=== PATIENT | male | born 1950 | race Caucasian/White ===

== ENCOUNTER 2017-06-24 06:33 | Day surgery (SDC) ==
[2015-10-03 20:44] VITALS: BMI 25.8
[2017-06-24] MEDS ORDERED: LIDOCAINE 1% 20 ML MDV ID ONE (07:26)
[2017-06-24] MEDS ORDERED: DIPRIVAN 20 ML VIAL IVP ONE (08:41)
[2017-06-24] MEDS ORDERED: VERSED ONE (08:41)
[2017-06-24 09:57] VITALS: BP 123/65; TEMP 97.4
--- NOTE | 2017-06-24 15:40 | OP ---
PROCEDURE: COLONOSCOPY TO THE CECUM AND SNARE POLYPECTOMY. ENDOSCOPIST: Vaughn FARLEY M.D. INDICATION: HISTORY OF POLYPS INSTRUMENT: [employer]-190. MEDICATION: PER ANESTHESIA. DATE OF LAST COLONOSCOPY: 2010 PROCEDURE: The patient was positioned for colonoscopy. The digital rectal exam was negative. The colonoscope was inserted through the anus and advanced to the cecum. The cecum was identified using the ileocecal valve and the appendiceal orifice as landmarks. The scope was slowly withdrawn through an adequately prepped colon. A small polyp in the rectum was removed using snare cautery. Hemorrhoids were seen on retroflex exam. The patient tolerated the procedure without immediate complication. Withdraw time 11 minutes. PLAN: 1. Review pathology with anticipated repeat colonoscopy for surveillance in 5 years CC: Dr. Galindo JERRY
== END 2017-06-24 09:58 | disposition home or self-care (01) ==
LOC: SURG 06:33
PROVIDERS: ATTEND Internal Medicine Gastroenterology
DX: Z09 Encounter for follow-up examination after completed treatment for conditions other than malignant neoplasm (principal); Z86.010 Personal history of colon polyps; D12.7 Benign neoplasm of rectosigmoid junction; K64.9 Unspecified hemorrhoids

== ENCOUNTER 2017-11-11 10:14 | Outpatient (CLI) ==
[2015-10-03 20:44] VITALS: BMI 25.8
--- NOTE | 2017-11-11 11:56 | DI ---
EXAM: Chest two view, frontal and lateral views. HISTORY: Chronic obstructive pulmonary disease. COMPARISON: 10/03/2015. FINDINGS: The heart size is normal. There is no pulmonary vascular congestion. The lungs are clear save for right perihilar scarring and calcified granuloma. No pleural effusion or pneumothorax is s een. No acute osseous abnormality identified. Since the prior study, there has been no significant interval change. IMPRESSION: No acute cardiopulmonary process.
== END 2017-11-11 10:15 | disposition home or self-care (01) ==
LOC: RAD 10:14
PROVIDERS: ATTEND Nurse Practitioner Family
DX: J44.9 Chronic obstructive pulmonary disease, unspecified (principal)

== ENCOUNTER 2018-11-07 11:23 | Emergency (ER) ==
[2018-11-07] MEDS: AMIDATE IVP ONE ×2 (11:35→12:06)
[2018-11-07] MEDS ORDERED: AMIDATE IVP STA (11:35)
[2018-11-07] MEDS ORDERED: CARDIZEM INJ ONE (11:37)
[2018-11-07] MEDS ORDERED: CARDIZEM INJ IVP STA (11:40)
[2018-11-07 11:45] VITALS: TEMP 95.8; BMI 29.4
--- NOTE | 2018-11-07 11:51 | ED.PDOC ---
General ED Provider: Dr. ESSENCE SALEH Chief Complaint: Arrhythmia Stated Complaint: chest pain/palpitations onset shortly prior to arrival. pt did arrive in atrial flutter in 1:1 conduction heart rate approaching 300. he was hypotensive , but alert and orientated x 3. pt was cardioverted after carotid sinus massage failed to correct his heart rate. pt was cardioverted with 50J post cardiovesrion his heart rate was 132 . Time Seen by Physician: 11:31 (all nurses at bedside inculding his at all time ) Information Source: Patient Exam Limitations: No limitations Primary Care Provider: FLOWER ANTONIO Nursing and Triage Documentation Reviewed and Agree: Yes Does patient meet sepsis criteria?: No System Inflammatory Response Syndrome: Not Applicable Sepsis Protocol: For patient's 13 years and over: Temp is 96.8 and below OR 101 and greater Pulse >90 BPM Resp >20/minute Acutely Altered Mental Status Are patient's symptoms suggestive of a new infection, such as: -Pneumonia -Skin, Soft Tissue -Endocarditis -UTI -Bone, Joint Infection -Implantable Device -Acute Abdominal Infection -Wound Infection -Meningitis -Blood Stream Catheter Infection -Unknown Cardiovascular Complaint Exam - Palpitations Complaint/Exam Onset/Duration: 20 min P.T.A Symptoms Are: Resolved (AFTER CARDIOVERSION) Timing: Constant Initial Severity: Severe Current Severity: Severe (HEARTE RATE 290) Aggravating: Reports: None Alleviating: Reports: Medications (SEE ABOVE ) Associated Signs and Symptoms: Reports: Chest pain, Shortness of breath. Denies : Lightheadedness, Dizziness, Syncope, Diaphoresis, Nausea, Vomiting Related History: Similar episode (DENIED) Related Surgical History: Reports: None Cardiac Risk Factors: Reports: Hypertension (C.O.P.D ) Pulmonary Embolism Risk Factors: Reports: None Atrial Fibrillation Risk Factors: Reports: Hypertension, COPD. Denies: CAD, Mitral Valve Disease, Pulmonary Embolism, Hypothyroidism, Alcohol abuse Thyroid Exam: Normal Differential Diagnoses: Cardiomyopathy (ISCHEMIC WITH SCARING ), CAD, Paroxysmal SVT Quality Indicators for AMI: EKG in 10min. Quality Indicators for Cardiac Chest Pain: EKG in 10min. Quality Indicator For Non-Traumatic Chest Pain/Syncope: EKG Performed Review of Systems - Review Of Systems Constitutional: Reports: No symptoms Eyes: Reports: No symptoms Ears, Nose, Mouth, Throat: Reports: No symptoms Respiratory: Reports: No symptoms Cardiac: Reports: Palpitations GI: Reports: No symptoms : Reports: No symptoms Musculoskeletal: Reports: No symptoms Skin: Reports: No symptoms Neurological: Reports: No symptoms Endocrine: Reports: No symptoms Hematologic/Lymphatic: Reports: No symptoms All Other Systems: Reviewed and Negative Past Medical History - Past Medical History Previously Healthy: Yes Endocrine: Reports: None Cardiovascular: Reports: Hypertension Respiratory: Reports: COPD Hematological: Reports: None Gastrointestinal: Reports: GERD Genitourinary: Reports: None Neuro/Psych: Reports: None Musculoskeletal: Reports: None Cancer: Reports: None - Surgical History General Surgical History: Reports: None - Family History Family History: Reports: None - Social History Smoking Status: Former smoker Hx Substance Use: No Alcohol Screening: Occasionally Physical Exam - Physical Exam Appearance: Ill-appearing Ill-appearing: Severe Pain Distress: Severe Eyes: TASNEEM, EOMI, Conjunctiva clear ENT: Ears normal, Nose normal, Oropharynx normal Respiratory: Airway patent, Breath sounds clear, Breath sounds equal, Respirations nonlabored Cardiovascular: Tachycardia GI/: Soft, Nontender, No masses, Bowel sounds normal, No Organomegaly Musculoskeletal: Normal strength, ROM intact, No edema, No calf tenderness Skin: Warm, Dry, Normal color Neurological: Sensation intact, Motor intact, Reflexes intact, Cranial nerves intact, Alert, Oriented Psychiatric: Affect appropriate, Mood appropriate 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: Other (ATRIAL FLUTTER WITH 1:1 CONDUCTION) - EKG Interpretation Rhythm: Other (ATRIAL FLUTTER WITH 1:1 CONDUCTION) Rate: Normal Rhythm: Sinus Ectopy: None [place]: NL ST Segment: Normal Physician Notification - Case Discussed Physician Notified: TED Time of Notification: 12:04 (CASE DISCUSSED HE STATED ANTI COAGULATE HIM ASK HIM FOLLOW WITH HIS OUT PT) Physician Notified: JELANI Time of Notification: 12:05 (TRANSFER HIM TO [facility] [place] UNDER P.M.D) Critical Care Note - Critical Care Note Total Time (mins): 60 Course - Course Hematology/Chemistry: 11/07/18 11:55 Orders, Labs, Meds: Lab Review 11/07/18 11:55 WBC 16.52 H RBC 4.64 L Hgb 14.8 Hct 43.3 MCV 93.3 MCH 31.9 H MCHC 34.2 RDW Coeff of Kwab[place] 13.4 Plt Count 247 Immature Gran % (Auto) 1.0 Neut % (Auto) 75.9 Lymph % (Auto) 14.4 [place] % (Auto) 6.4 Eos % (Auto) 1.5 Baso % (Auto) 0.8 Immature Gran # (Auto) 0.2 Neut # (Auto) 12.5 H Lymph # (Auto) 2.4 [place] # (Auto) 1.1 Eos # (Auto) 0.3 Baso # (Auto) 0.1 Orders Category Date Time Status EKG-(ED ONLY) Stat CARDIO 11/07/18 11:39 Ordered Cardiovert [ED CARDIOVERT PATIENT] .ONCE EMERGENCY 11/07/18 11:39 Ordered ED IV/MEDIPORT/POWERPORT .ONCE EMERGENCY 11/07/18 11:39 Ordered CBC W/ AUTO DIFF Stat LAB 11/07/18 11:39 Ordered COMPREHENSIVE METABOLIC PANEL Stat LAB 11/07/18 11:39 Ordered CREATINE KINASE Stat LAB 11/07/18 11:39 Ordered FREE T4 (FREE THYROXINE) Stat LAB 11/07/18 11:39 Ordered PARTIAL THROMBOPLASTIN TIME Stat LAB 11/07/18 11:39 Ordered PT WITH INR Stat LAB 11/07/18 11:39 Ordered THYROID STIMULATING HORMONE Stat LAB 11/07/18 11:39 Ordered TROPONIN I Stat LAB 11/07/18 11:39 Ordered 0.9 % Sodium Chloride [Saline Flush] MEDS 11/07/18 11:39 Ordered 1 syr IVF PRN PRN DILTIAZEM HCL INJ 125 MG in 0.9 % SODIUM CHLORIDE(125ml MEDS 11/07/18 12:00 Ordered ) 0.9 % Sodium Chloride [Sodium Chloride] 100 ml Diltiazem HCl Inj [Cardizem Inj] 125 mg IV 10 mg/hr Diltiazem HCl Inj [Cardizem Inj] MEDS 11/07/18 11:40 Stat 20 mg IVP ONCE STA Diltiazem HCl [Cardizem Inj] MEDS 11/07/18 11:45 Discontinued 125 mg .ROUTE .STK-MED ONE Diltiazem HCl [Cardizem Inj] MEDS 11/07/18 11:37 Discontinued 25 mg .ROUTE .STK-MED ONE Etomidate [Amidate] MEDS 11/07/18 11:31 Discontinued 20 mg IVP .STK-MED ONE CHEST, 1V AP ONLY Stat RADS 11/07/18 11:39 Ordered Medications Generic Name Dose Route Start Last Admin Trade Name Freq PRN Reason Stop Dose Admin Diltiazem HCl 125 mg/ Sodium 125 mls @ 10 mls/hr 11/07/18 12:00 11/07/18 11: 57 Chloride IV 5 mg/hr .[id number] SUSANA 5 mls/hr Administration Protocol 10 MG/HR Sodium Chloride 1 syr 11/07/18 11:39 11/07/18 11:51 Saline Flush IVF 1 syr PRN PRN Administration To flush IV Discontinued Medications Generic Name Dose Route Start Last Admin Trade Name Freq PRN Reason Stop Dose Admin Diltiazem HCl 20 mg 11/07/18 11:40 11/07/18 11:39 Cardizem Inj IVP 11/07/18 11:41 20 mg ONCE STA Administration Vital Signs: Temp Pulse Resp BP Pulse Ox 11/07/18 11:57 108 H 16 101/71 11/07/18 11:30 95.8 F L 266 H 20 65/56 L 98 MARIANNA Risk Score MARIANNA Risk Score: Risk Score Odds of by 30D 0 0.1 (0.1-0.2) 1 0.3 (0.2-0.3) 2 0.4 (0.3-0.5) 3 0.7 (0.6-0.9) 4 1.2 (1.0-1.5) 5 2.2 (1.9-2.6) 6 3.0 (2.5-3.6) 7 4.8 (3.8-6.1) Departure - Departure Time of Disposition: 12:03 Disposition: TSF SHORT-TRM HOSP Discharge Problem: Atrial flutter Qualifiers: Atrial flutter type: unspecified Qualified Code(s): I48.92 - Unspecified atrial flutter Instructions: Atrial Tachycardia (ED) Condition: Good Pt referred to PMD for follow-up: Yes IPMP verified?: No Additional Instructions: Please call your Family Physician as soon as possible to schedule a follow-up appointment. Allergies/Adverse Reactions: Allergies No Known Allergies Allergy (Unverified 10/03/15 20:41) Home Medications: Ambulatory Orders Cetirizine HCl 10 mg PO DAILY 10/03/15 Enalapril Maleate 20 mg PO DAILY 10/03/15 Hydrochlorothiazide 25 mg PO DAILY 10/03/15 Omeprazole [Prilosec] 20 mg PO DAILY 10/03/15 Potassium Chloride [Klor-Con 10] 10 meq PO DAILY 10/03/15 Tiotropium [place] [Spiriva] 1 cap IH DAILY 10/03/15 Albuterol Sulfate [Proair Respiclick] 90 mcg IH DAILY 06/24/17 Beclomethasone Dipropionate [Qvar] 8.7 gm IH BID 06/24/17 Metoprolol Succinate 25 mg PO DAILY 06/24/17 Disposition Discussed With: Patient, Family
[2018-11-07] MEDS: CARDIZEM INJ ONE ×2 (11:55→12:02)
[2018-11-07] MEDS ORDERED: CARDIZEM INJ 125 MG in SODIUM CHLORIDE 100 ML IV SCH (12:00)
[2018-11-07 12:02] VITALS: BP 101/71
[2018-11-07] MEDS ORDERED: LOVENOX SUBCUT STA (12:06)
--- NOTE | 2018-11-07 12:30 | DI ---
EXAM: CHEST FRONTAL VIEW HISTORY: Arrhythmia. COMPARISON: 11/11/2017 FINDINGS: Heart size is approaching upper limit normal. No acute infiltrates are seen. No vascular congestion. There is no consolidation, visible pleural fluid or pneumothorax. Bones reveal no acut e fracture. IMPRESSION: No vascular congestion identified. Mildly prominent heart size.
== END 2018-11-07 13:15 | disposition short-term general hospital (02) ==
LOC: ED 11:23
DX: I48.92 Unspecified atrial flutter (principal); R06.02 Shortness of breath; R07.9 Chest pain, unspecified; I10 Essential (primary) hypertension; J44.9 Chronic obstructive pulmonary disease, unspecified; Z79.899 Other long term (current) drug therapy; R53.1 Weakness; R00.0 Tachycardia, unspecified
CPT/HCPCS: 36415; 80053; 82550; 84439; 84443; 84484; 85025; 85610; 85730; 93005; 93010; 96365; 96372; 96375; 99285